=== PATIENT | male | born 1975 | race Two or more races ===

== ENCOUNTER 2024-10-28 16:48 | Emergency (ER) | payer OTHER ==
[~2024-10-28] VITALS: Ht 170.2 cm; Wt 74.1 kg
[2024-10-28] MEDS ORDERED: IBUP-1492 PO (16:58)
[2024-10-28 18:25] VITALS: TEMP 98.2
[2024-10-28] MEDS: ACETAMINOPHEN 500 MG TABLET PO ONE (19:34)
[2024-10-28 19:35] VITALS: BP 125/80; PULSE 75; RESP 16; O2SAT 98
== END 2024-10-28 22:20 ==
LOC: EMS 16:48
DX: S90.32XA Contusion of left foot, initial encounter (principal); S20.212A Contusion of left front wall of thorax, initial encounter; G89.29 Other chronic pain; M25.572 Pain in left ankle and joints of left foot; Z88.0 Allergy status to penicillin; Z79.899 Other long term (current) drug therapy; X58.XXXA Exposure to other specified factors, initial encounter; Y93.89 Activity, other specified; Y92.89 Other specified places as the place of occurrence of the external cause; Y99.8 Other external cause status
CPT/HCPCS: 71101; 99284; 73030-TC; 73130-TC; 73610-TC; Z7502; Z7610